=== PATIENT | female | born 1965 | race American Indian/Alaskan Native ===

== ENCOUNTER 2017-03-21 11:02 | Emergency (ER) | payer OTHER ==
[2017-03-21] MEDS ORDERED: NACL 0.9% 1000 ML 1,000 ML IV ONE (13:42)
[2017-03-21] MEDS ORDERED: APRESOLINE IV ONE (13:42)
[2017-03-21] MEDS ORDERED: TETRACAINE 0.5% OU PRN (13:44)
[2017-03-21] MEDS ORDERED: FUL-GLO OP ONE (13:44)
--- NOTE | 2017-03-21 13:56 | Emergency Department Report ---
ED Eye Problem HPI - General Chief complaint: Eye Problems Stated complaint: RIGHT EYE PAIN Time Seen by Provider: 03/21/17 13:38 Source: patient Mode of arrival: Ambulatory Limitations: No Limitations - History of Present Illness Initial comments: This is a 51-year-old female nontoxic, well nourished in appearance, no acute signs of distress presents to the ED with c/o of right eye pain and irritation x1 day. Patient stated this morning she wake up and felt something in her eye and start to rub her eye and developed pain and watery eye. Patient denies any trauma to the eye. Patient denies visual chagnes, blurry vision, headache, stiff neck, nausea, vomiting, chest pain, shortness of breathe, fever, chills, abdominal pain. Patient denies any allergies. Patient PMH includes hypertension which patient stated did not have insurance to follow-up with PCP and was taking HCTZ 12.5 mg daily but has not taken it for 4-5 months. Patient also stated she does wear contact lens but denies having them on today. MD chief complaint: eye pain -: This morning Onset Description: sudden Location: right eye Place: home If Injury: none Eye Symptoms: burning, pain, foreign body sensation Severity: mild Severity scale (0 -10): 8 If Pain, Quality: burning Consistency: constant Associated Symptoms: none. denies: headache, neck pain, nausea/vomiting, cough , rhinorrhea, fever, shortness of breath Treatments Prior to Arrival: none - Related Data Previous Rx's Medication Instructions Recorded Last Taken Type Ciprofloxacin 0.3% (Nf) 2.5 ml OD DAILY #1 drops 03/21/17 Unknown Rx [Ciprofloxacin OPTH] Hydrochlorothiazide [Hctz] 12.5 mg PO QDAY #30 capsule 03/21/17 Unknown Rx Allergies Allergy/AdvReac Type Severity Reaction Status Date / Time No Known Allergies Allergy Unverified 03/21/17 11:08 ED Review of Systems ROS: Stated complaint: RIGHT EYE PAIN Other details as noted in HPI Constitutional: denies: chills, fever Eyes: eye pain. denies: eye discharge, vision change ENT: denies: ear pain, throat pain Respiratory: denies: cough, shortness of breath, wheezing Cardiovascular: denies: chest pain, palpitations Endocrine: no symptoms reported Gastrointestinal: denies: abdominal pain, nausea, diarrhea Genitourinary: denies: urgency, dysuria, discharge Musculoskeletal: denies: back pain, joint swelling, arthralgia Skin: denies: rash, lesions Neurological: denies: headache, weakness, paresthesias Psychiatric: denies: anxiety, depression Hematological/Lymphatic: denies: easy bleeding, easy bruising ED Past Medical Hx - Past Medical History Previous Medical History?: Yes Hx Hypertension: Yes - Surgical History Past Surgical History?: Yes Additional Surgical History: Tubaligation, - Social History Smoking Status: Current Every Day Smoker Substance Use Type: Alcohol, Prescribed - Medications Home Medications: Home Medications Medication Instructions Recorded Confirmed Last Taken Type Ciprofloxacin 0.3% (Nf) 2.5 ml OD DAILY #1 drops 03/21/17 Unknown Rx [Ciprofloxacin OPTH] Hydrochlorothiazide [Hctz] 12.5 mg PO QDAY #30 capsule 03/21/17 Unknown Rx ED Physical Exam - General Limitations: No Limitations General appearance: alert, in no apparent distress - Head Head exam: Present: atraumatic, normocephalic, normal inspection - Eye Eye exam: Present: normal appearance, PERRL, EOMI. Absent: scleral icterus, conjunctival injection, nystagmus, periorbital swelling, periorbital tenderness Pupils: Present: normal accommodation - Expanded Eye Exam Expanded Eyelids: Normal Inspection: Left Pupils: Regular, Round: Left, Reactive: Left Sclera/Conjunctival: Normal Inspection: Left Visual acuity (R) = 20/: 70 Visual acuity (L) = 20/: 20 With correction: No IOP measured with: Tonopen (14-right eye) - ENT ENT exam: Present: normal exam, normal orophraynx, mucous membranes moist, TM's normal bilaterally, normal external ear exam - Neck Neck exam: Present: normal inspection, full ROM. Absent: tenderness, meningismus, lymphadenopathy, thyromegaly - Respiratory Respiratory exam: Present: normal lung sounds bilaterally. Absent: respiratory distress, wheezes, rales, rhonchi, stridor, chest wall tenderness, accessory muscle use, decreased breath sounds, prolonged expiratory - Cardiovascular Cardiovascular Exam: Present: regular rate, normal rhythm, normal heart sounds. Absent: bradycardia, tachycardia, irregular rhythm, systolic murmur, diastolic murmur, rubs, gallop - GI/Abdominal GI/Abdominal exam: Present: soft, normal bowel sounds. Absent: distended, tenderness, guarding, rebound, rigid, diminished bowel sounds - Rectal Rectal exam: Present: deferred - Extremities Exam Extremities exam: Present: normal inspection, full ROM, normal capillary refill. Absent: tenderness, pedal edema, joint swelling, calf tenderness - Back Exam Back exam: Present: normal inspection, full ROM. Absent: tenderness, CVA tenderness (R), CVA tenderness (L), muscle spasm, paraspinal tenderness, vertebral tenderness, rash noted - Neurological Exam Neurological exam: Present: alert, oriented X3, CN II-XII intact, normal gait, reflexes normal - Expanded Neurological Exam Expanded Patient oriented to: Present: person, place, time Cranial nerves: EOM's Intact: Normal, Gag Reflex: Normal, Tongue Deviation: Normal, Nystagmus: Normal, Facial Sensation: Normal, Facial Palsy with Forehead Movement: Normal, Facial Palsy without Forehead Movement: Normal Cerebellar function: Finger to Nose: Normal, Heel to Murray: Normal, Romberg: Normal Upper motor neuron: Gildardo Neglect: Normal, Pronator Drift: Normal, Babinski Sign : Normal, Sensory Extinction: Normal Sensory exam: Upper Extremity Light Touch: Normal, Upper Extremity Pin Prick: Normal, Upper Extremity Temperature: Normal, UE 2 Point Discrimination: Normal, Lower Extremity Light Touch: Normal, Lower Extremity Pin Prick: Normal, Lower Extremity Temperature: Normal, LE 2 Point Discrimination: Normal Motor strength exam: RUE: 5, LUE: 5, RLE: 5, LLE: 5 DTR: bicep (R): 2+, bicep (L): 2+, tricep (R): 2+, tricep (L): 2+, knee (R): 2+ , knee (L): 2+, ankle (R): 2+, ankle (L): 2+ Best Eye Response (Sharlene): (4) open spontaneously Best Motor Response (Sharlene): (6) obeys commands Best Verbal Response (Sharlene): (5) oriented Sharlene Total: 15 - Psychiatric Psychiatric exam: Present: normal affect, normal mood - Skin Skin exam: Present: warm, dry, intact, normal color. Absent: rash - Other Other exam information: Under [place] lamp, I used fluorescein and tetracaine to examine cornea for corneal abrasion or foreign body with positive white patch in the corneal region which indicates infectious keratitis vs corneal abrasion. No hypopyon or hyphema present. ED Course Vital Signs 03/21/17 03/21/17 11:08 14:37 Temperature 98.3 F Pulse Rate 87 86 Respiratory 18 Rate Blood Pressure 166/111 141/99 O2 Sat by Pulse 99 Oximetry - Reevaluation(s) Reevaluation #1: 03/21/17 14:32 Patient is speaking in full sentences with no signs of distress noted. ED Medical Decision Making - Medical Decision Making This is a 51-year-old female that presents with corneal abrasion vs. infectious keratitis. Normal EOM. Normal pupillary reflex. 14 on tonopen. Patient is stable and was examined by me. Patient received hydralazine and 1L normal saline due to hypertension which pressure decreased for discharge. Patient stated she takes HCTZ 12.5 mg daily so I will prescribe patient with a follow-up appointment. Patient received ciprofloxacin ophthalmic drops at discharge. Patient was instructed Follow-up with a primary care doctor/ pusher runner in 24 hours or if symptoms worsen and continue return to emergency room as soon as possible. At time time of discharge, the patient does not seem toxic or ill in appearance. No acute signs of distress noted. Patient agrees to discharge treatment plan of care. No further questions noted by the patient. - Differential Diagnosis infectious keratitis, corneal abrasion Critical care attestation.: If time is entered above; I have spent that time in minutes in the direct care of this critically ill patient, excluding procedure time. ED Disposition Clinical Impression: Bacterial keratitis Corneal abrasion Qualifiers: Encounter type: initial encounter Laterality: right Qualified Code(s): S05.01XA - Injury of conjunctiva and corneal abrasion without foreign body, right eye, initial encounter Hypertension Qualifiers: Hypertension type: unspecified Qualified Code(s): I10 - Essential (primary) hypertension Disposition: DC-01 TO HOME OR SELFCARE Is pt being admited?: No Does the pt Need Aspirin: No Condition: Stable Instructions: Ciprofloxacin (Into the eye), Corneal Abrasion (ED), Keratitis ( ED), Hypertension (ED) Additional Instructions: Follow-up with a primary care doctor/pusher runner in 24 hours or if symptoms worsen and continue return to emergency room as soon as possible. Keep a daily diary of your blood pressure and present to your primary care doctor for further evaluation Prescriptions: Ciprofloxacin 0.3% (Nf) [Ciprofloxacin OPTH] 2.5 ml OD DAILY #1 drops Hydrochlorothiazide [Hctz] 12.5 mg PO QDAY #30 capsule Referrals: PRIMARY CARE, [Primary Care Provider] - 3-5 Days KAUSHIK TATUM MD [Staff Physician] - 3-5 Days ZENA ROWLEY MD [Referring] - 3-5 Days ESTEBAN DOBBS MD [Staff Physician] - 3-5 Days [facility] [place] [Outside] - 3-5 Days Forms: Work/School Release Form(ED)
[2017-03-21] MEDS ORDERED: TORADOL IV ONE (14:21)
[2017-03-21 15:10] VITALS: BP 156/91
== END 2017-03-21 15:16 | disposition home or self-care (01) ==
LOC: ED 11:02
DX: S05.01XA Injury of conjunctiva and corneal abrasion without foreign body, right eye, initial encounter (principal); H16.8 Other keratitis; I10 Essential (primary) hypertension; F17.200 Nicotine dependence, unspecified, uncomplicated; X58.XXXA Exposure to other specified factors, initial encounter; Y93.89 Activity, other specified; Y92.89 Other specified places as the place of occurrence of the external cause; Y99.8 Other external cause status
CPT/HCPCS: 93005; 93010; 96361; 96374; 96375; 99283; J0360; J1885; J7030